=== PATIENT | male | born 2005 | race Two or more races ===

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

== ENCOUNTER 2024-02-13 15:49 | Outpatient (REF) | payer MEDICAID, SELFPAY | END 2024-02-13 15:50 | disposition home or self-care (01) | LOC: HO.HHCL 15:49 | PROVIDERS: Visit Provider Family Medicine | DX: Z13.89 Encounter for screening for other disorder (principal) ==

== ENCOUNTER 2024-02-16 10:24 | Outpatient (REF) | payer MEDICAID, SELFPAY ==
[2024-02-19 04:43] LABS: TS Negative Control Passed; TS Panel A 0; TS Panel B 0; TS Positive Control Passed; TSpotTB Negative (Negative)
== END 2024-02-16 10:25 | disposition home or self-care (01) ==
LOC: HO.HHCL 10:24
PROVIDERS: Visit Provider Family Medicine
DX: Z11.1 Encounter for screening for respiratory tuberculosis (principal)
CPT/HCPCS: 36415; 86481

== ENCOUNTER 2024-03-15 13:34 | Outpatient (REF) | payer MEDICAID, SELFPAY ==
[2024-03-15 18:12] LABS: Cholesterol 152 mg/dL (<200); HDL Cholesterol 40 mg/dL (>40); LDL Cholesterol Calculated 97 mg/dL (<100); Triglycerides 77 mg/dL (<150)
[2024-03-16 04:58] LABS: HBS Num1 30.36 mIU/mL (0-7.99); HBc Num1 0.13 S/CO (0.00-0.79); HBsAGNum1 0.42 S/CO (0.00-0.99); Hepatitis B Core Antibody Nonreactive (Nonreactive); Hepatitis B Surface Antigen Negative (Negative); ~Hepatitis B Surface Antibody REACTIVE (Nonreactive)
[2024-03-18 10:22] LABS: TS Negative Control Passed; TS Panel A 0; TS Panel B 4; TS Positive Control Passed; TSpotTB Negative (Negative)
== END 2024-03-15 13:35 | disposition home or self-care (01) ==
LOC: HO.HHCL 13:34
PROVIDERS: Family Medicine; Visit Provider Registered Nurse
DX: Z00.00 Encounter for general adult medical examination without abnormal findings (principal); Z11.1 Encounter for screening for respiratory tuberculosis
CPT/HCPCS: 36415; 80061; 86481; 86704; 86706; 87340